=== PATIENT | male | born 2000 | race Caucasian/White ===

== ENCOUNTER 2018-10-08 10:32 | Emergency (ER) | payer SELFPAY ==
[~2018-10-08] VITALS: Ht 172.7 cm; Wt 75.0 kg
[2018-10-08] MEDS ORDERED: ACETAMINOPHEN 500MG TABLET PO ONE (11:30)
[2018-10-08] MEDS ORDERED: IBUPROFEN 600MG TABLET PO ONE (11:30)
[2018-10-08 12:25] VITALS: BP 122/76
== END 2018-10-08 12:47 | disposition home or self-care (01) ==
LOC: ER 11:34
DX: R07.89 Other chest pain (principal); F12.10 Cannabis abuse, uncomplicated; F17.200 Nicotine dependence, unspecified, uncomplicated
CPT/HCPCS: 71045; 93005; 99283

== ENCOUNTER 2025-01-19 09:11 | Emergency (ER) | payer SELFPAY ==
[~2025-01-19] VITALS: Ht 172.7 cm; Wt 82.0 kg
[2025-01-19 09:14] VITALS: O2SAT 98
[2025-01-19] MEDS: KETOROLAC 30MG/ML VIAL IM ONE (10:57)
[2025-01-19] MEDS ORDERED: KETO10TA2 MT (11:27)
[2025-01-19 11:42] VITALS: BP 109/83; PULSE 65; RESP 16; TEMP 36.8; O2SAT 98
== END 2025-01-19 11:47 | disposition home or self-care (01) ==
LOC: ER 09:11
DX: S93.402A Sprain of unspecified ligament of left ankle, initial encounter (principal); V00.131A Fall from skateboard, initial encounter; Y93.51 Activity, roller skating (inline) and skateboarding; Y92.89 Other specified places as the place of occurrence of the external cause; Y99.8 Other external cause status
CPT/HCPCS: 99283; 29515; 73600; 96372; J1885; A6449